=== PATIENT | male | born 1990 | race Caucasian/White ===

== ENCOUNTER 2020-02-23 19:14 | Emergency (ER) | payer OTHER ==
[~2020-02-23] VITALS: Ht 167.6 cm; Wt 102.1 kg
[~2020-02-23 19:14] MED LIST: CELEXA10 MG PO; CIPROFLOXACIN500 M1 PO; LEVAQUIN 500 M500 M2 PO; LOPRESSOR25 PO; PERCOCET 5-3251 EACH PO; XANAX 0.25 MG0.25 MG PO
[2020-02-23] MEDS ORDERED: PERCOCET 7.5-31 EAC1 PO (21:16)
[2020-02-23 21:27] VITALS: BP 125/65
== END 2020-02-23 21:28 | disposition home or self-care (01) ==
LOC: M.ERS 19:14
DX: S90.02XA Contusion of left ankle, initial encounter (principal); I10 Essential (primary) hypertension; F41.9 Anxiety disorder, unspecified; F17.210 Nicotine dependence, cigarettes, uncomplicated; Z87.442 Personal history of urinary calculi; Z88.8 Allergy status to other drugs, medicaments and biological substances; W23.0XXA Caught, crushed, jammed, or pinched between moving objects, initial encounter; Y93.89 Activity, other specified; Y92.89 Other specified places as the place of occurrence of the external cause; Y99.8 Other external cause status

== ENCOUNTER → 2020-04-06 | Outpatient (CLI) | payer OTHER ==
[~2020-04-06] MED LIST changes: +PERCOCET 7.5-31 EAC1 PO
== END ==
LOC: M.WC 10:00
PROVIDERS: ATTEND Family Medicine
DX: S91.002A Unspecified open wound, left ankle, initial encounter (principal); L97.322 Non-pressure chronic ulcer of left ankle with fat layer exposed; I10 Essential (primary) hypertension; F17.200 Nicotine dependence, unspecified, uncomplicated; F41.9 Anxiety disorder, unspecified; X58.XXXA Exposure to other specified factors, initial encounter; Y93.89 Activity, other specified; Y92.89 Other specified places as the place of occurrence of the external cause; Y99.8 Other external cause status

== ENCOUNTER → 2020-04-20 | Outpatient (CLI) | payer OTHER | LOC: M.WC 07:28 | PROVIDERS: ATTEND Family Medicine | DX: S97.02XD Crushing injury of left ankle, subsequent encounter (principal); S97.82XD Crushing injury of left foot, subsequent encounter; L98.8 Other specified disorders of the skin and subcutaneous tissue; I10 Essential (primary) hypertension; F41.9 Anxiety disorder, unspecified; F17.290 Nicotine dependence, other tobacco product, uncomplicated; W23.0XXD Caught, crushed, jammed, or pinched between moving objects, subsequent encounter ==

== ENCOUNTER → 2020-04-27 | Outpatient (CLI) | payer OTHER | LOC: M.WC 07:48 | PROVIDERS: ATTEND Family Medicine | DX: S91.302D Unspecified open wound, left foot, subsequent encounter (principal); L97.322 Non-pressure chronic ulcer of left ankle with fat layer exposed; I10 Essential (primary) hypertension; F17.290 Nicotine dependence, other tobacco product, uncomplicated; F41.9 Anxiety disorder, unspecified; W24.0XXD Contact with lifting devices, not elsewhere classified, subsequent encounter ==

== ENCOUNTER → 2020-05-04 | Outpatient (CLI) | payer OTHER | LOC: M.WC 07:30 | PROVIDERS: ATTEND Family Medicine | DX: S91.002D Unspecified open wound, left ankle, subsequent encounter (principal); L97.322 Non-pressure chronic ulcer of left ankle with fat layer exposed; I10 Essential (primary) hypertension; F17.200 Nicotine dependence, unspecified, uncomplicated; F41.9 Anxiety disorder, unspecified; W31.89XD Contact with other specified machinery, subsequent encounter ==

== ENCOUNTER → 2020-05-11 | Outpatient (CLI) | payer OTHER | LOC: M.WC 08:10 | PROVIDERS: ATTEND Family Medicine | DX: S91.002D Unspecified open wound, left ankle, subsequent encounter (principal); L97.322 Non-pressure chronic ulcer of left ankle with fat layer exposed; S91.302D Unspecified open wound, left foot, subsequent encounter; I10 Essential (primary) hypertension; F17.200 Nicotine dependence, unspecified, uncomplicated; F41.9 Anxiety disorder, unspecified; W24.0XXD Contact with lifting devices, not elsewhere classified, subsequent encounter ==

== ENCOUNTER → 2020-05-18 | Outpatient (CLI) | payer OTHER | LOC: M.WC 05-16 12:00 | PROVIDERS: ATTEND Family Medicine | DX: S97.02XD Crushing injury of left ankle, subsequent encounter (principal); S91.002D Unspecified open wound, left ankle, subsequent encounter; L98.8 Other specified disorders of the skin and subcutaneous tissue; I10 Essential (primary) hypertension; F41.9 Anxiety disorder, unspecified; F17.290 Nicotine dependence, other tobacco product, uncomplicated; S97.82XD Crushing injury of left foot, subsequent encounter; S91.302D Unspecified open wound, left foot, subsequent encounter; W24.0XXD Contact with lifting devices, not elsewhere classified, subsequent encounter ==

== ENCOUNTER 2020-05-19 09:52 | Emergency (ER) | payer OTHER ==
[~2020-05-19] VITALS: Ht 170.2 cm; Wt 99.8 kg
[2020-05-19 10:29] LABS: URINE BLOOD NEGATIVE (Negative); URINE CLARITY CLEAR; URINE COLOR YELLOW; URINE GLUCOSE-RANDOM NEGATIVE (Negative); URINE KETONES 1+ (Negative); URINE LEUKOCYTES-REFLEX NEGATIVE (Negative); URINE NITRITE-REFLEX NEGATIVE (Negative); URINE PROTEIN NEGATIVE (Negative); URINE SPECIFIC GRAVITY >= 1.030 (1.005-1.030); URINE UROBILINOGEN 0.2 E.U./dl (0.2-1.0)
[2020-05-19 10:35] LABS: ABSOLUTE BASOPHILS 0.1 thou/uL (0.0-0.2); ABSOLUTE EOSINOPHILS 0.2 thou/uL (0.0-0.7); ABSOLUTE LYMPHOCYTES 1.7 thou/uL (0.8-5.3); ABSOLUTE MONOCYTES 0.7 thou/uL (0.0-1.2); ABSOLUTE NEUTROPHILS 5.2 thou/uL (1.6-8.1); BASOPHILS 0.8 %; EOSINOPHILS 2.6 %; HEMATOCRIT 50.1 % (42.0-52.0); LYMPHOCYTES 21.6 %; MCH 29.9 pg (26.0-34.0); MCHC 33.9 g/dL (28.0-37.0); MCV 88.2 fL (80.0-100.0); MONOCYTES 9.5 %; MPV 9.5 fl. (7.2-11.1); NUCLEATED RBCS 0 /100WBC; PLATELET COUNT* 218 thou/uL (150-400); POLYS 65.5 %; RBC 5.67 mil/uL (4.50-6.00); RDW-CV 14.1 % (10.5-14.5); WBC 7.9 thou/uL (4.0-11.0)
[2020-05-19 10:37] LABS: AMP/METHAMP POSITIVE (Negative); BARBITURATES Negative (Negative); BENZODIAZEPINES POSITIVE (Negative); COCAINE Negative (Negative); METHADONE Negative (Negative); OPIATES Negative (Negative); PCP Negative (Negative); THC POSITIVE (Negative)
[2020-05-19 10:39] LABS: URINE BILIRUBIN 1+ (Negative)
[2020-05-19 10:40] LABS: ICTOTEST (BILI CONFIRMATORY) Positive (Negative)
[2020-05-19 10:42] LABS: CALCIUM 8.9 mg/dL (8.5-10.1); CREATININE 1.2 mg/dL (0.6-1.3); POTASSIUM 3.9 mmol/L (3.5-5.1)
[2020-05-19 10:46] LABS: ALBUMIN 4.7 g/dL (3.4-5.0); TOTAL BILIRUBIN 0.9 mg/dL (<0.1-1.0); TOTAL PROTEIN 8.3 g/dL (6.4-8.2)
[2020-05-19 11:06] LABS: ALCOHOL < 10 mg/dL (<10); SALICYLATE < 2.8 mg/dL (2.8-20.0)
[2020-05-19 11:07] LABS: ACETAMINOPHEN < 2 ug/mL (10-30)
[2020-05-19 21:30] VITALS: BP 136/84
--- NOTE | 2020-05-22 12:14 | EKG ---
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: [place] : 1990 Requested By: Sandor Peña Order Number: [id number] Kulwinder MD: Berry Handy Measurements Intervals [place] Rate: 72 P: 20 OR: 170 QRS: 44 QRSD: 94 T: 12 QT: 407 QTc: 446 Interpretive Statements Sinus rhythm Compared to ECG 04/09/2014 02:13:40 Right-axis deviation no longer present Prolonged QT interval no longer present Electronically Signed On 05-22-2020 12:14:29 WORKFORCE MANAGEMENT ANALYST by Berry Handy [email or web address] <ELECTRONICALLY SIGNED> By: Berry Handy MD, [facility] 05/22/204 33 33 Berry Handy MD, [facility] /EPI
== END 2020-05-19 21:30 | disposition short-term general hospital (02) ==
LOC: M.ERS 09:52
PROVIDERS: Emergency Medicine Emergency Medical Services
DX: R45.851 Suicidal ideations (principal); Z20.828 Contact with and (suspected) exposure to other viral communicable diseases; I10 Essential (primary) hypertension; Z79.899 Other long term (current) drug therapy; Z88.1 Allergy status to other antibiotic agents; Z87.442 Personal history of urinary calculi

== ENCOUNTER → 2020-05-31 | Outpatient (CLI) | payer OTHER | LOC: M.WC 08:12 | PROVIDERS: ATTEND Surgery | DX: S97.82XD Crushing injury of left foot, subsequent encounter (principal); I10 Essential (primary) hypertension; F41.9 Anxiety disorder, unspecified; F17.290 Nicotine dependence, other tobacco product, uncomplicated; W23.1XXD Caught, crushed, jammed, or pinched between stationary objects, subsequent encounter ==